=== PATIENT | male | born 1980 | race Caucasian/White ===

== ENCOUNTER 2023-02-06 05:33 | Emergency (ER) | payer SELFPAY ==
[~2023-02-06] VITALS: Ht 172.7 cm; Wt 80.0 kg
[2023-02-06] MEDS ORDERED: ONDANSETRON HCL 4 MG/2 ML VIAL IV ONE (07:45)
[2023-02-06] MEDS ORDERED: SODIUM CHLORIDE 0.9% 1,000 ML IV ONE (07:45)
[2023-02-06 09:53] VITALS: BP 124/76; PULSE 77; RESP 17; TEMP 99.8; O2SAT 97
[2023-02-06 10:19] LABS: Basophils # (auto) 0.1 10 ^3/uL (0-0.2); Basophils % (auto) 0.8 % (0.0-2.0); Eosinophils # (auto) 0 10 ^3/uL (0-0.8); Eosinophils % (auto) 0.1 % (0.0-7.0); Hematocrit 42.8 % (41.0-53.0); Hemoglobin 14.6 g/dL (13.5-17.5); Lymphocytes # (auto) 1.7 10 ^3/uL (0.4-5.4); Mean Corpuscular Hgb Conc. 34.2 g/dL (32.0-36.0); Mean Corpuscular Volume 90.8 fL (80.0-100.0); Monocytes # (auto) 0.8 10 ^3/uL (0-1.3); Monocytes % (auto) 7.9 % (0.0-12.0); Neutrophils % (auto) 75.2 % (37.0-80.0); Nucleated Red Blood Cells % 0.1 %; Red Blood Cells 4.71 10^6/uL (4.5-5.90); White Blood Cell 10.6 10^3/uL (4.4-10.8)
[2023-02-06 10:33] LABS: Alanine Aminotransferase 22 U/L (7-40); Alkaline Phosphatase 84 U/L (46-116); Anion Gap 10 (5-15); Aspartate Aminotransferase 54 U/L (13-40); BUN/Creatinine Ratio 16.5 (10.0-20.0); Blood Urea Nitrogen 15 mg/dL (9-23); Calcium 9.7 mg/dL (8.5-10.1); Carbon Dioxide 23 mmol/L (20-30); Chloride 102 mmol/L (98-107); Glucose 64 mg/dL (74-106); Potassium 3.8 mmol/L (3.5-5.1); Sodium 135 mmol/L (136-145)
[2023-02-06 10:34] LABS: Bilirubin, Total 1.6 mg/dL (0.2-1.0); Total Protein 7.2 g/dL (5.7-8.2)
[2023-02-06] MEDS ORDERED: ZOFR4T PO (10:34)
== END 2023-02-06 10:37 | disposition home or self-care (01) ==
LOC: EDBD 05:33 → ER 05:33
DX: F12.99 Cannabis use, unspecified with unspecified cannabis-induced disorder (principal); R10.84 Generalized abdominal pain; R11.2 Nausea with vomiting, unspecified; F17.210 Nicotine dependence, cigarettes, uncomplicated
CPT/HCPCS: 36415; 80053; 85025; 96361; 96374; 99283; J2405; J7030

== ENCOUNTER 2023-07-16 12:20 | Emergency (ER) | payer MEDICAID, OTHER ==
[~2023-07-16] VITALS: Ht 172.7 cm; Wt 69.0 kg
[~2023-07-16 12:20] MED LIST: ZOFR4T PO
[2023-07-16 13:11] LABS: Urine Bacteria None Seen /hpf (None Seen)
[2023-07-16 13:14] VITALS: BP 121/65; PULSE 70; RESP 18; TEMP 98.3; O2SAT 98
[2023-07-16 13:27] LABS: Urine Blood Negative /uL (Negative); Urine Clarity Turbid (Clear); Urine Color Yellow (Yellow); Urine Mucus FEW (None Seen); Urine Protein, UAD 1+ (Negative); Urine Specific Gravity 1.029 (1.001-1.035); Urine Urobilinogen Normal (Negative); Urine WBC 61 /hpf (0 - 3)
[2023-07-16] MEDS ORDERED: NITR-87 PO (14:03)
[2023-07-16] MEDS ORDERED: DOXY-286 PO (14:03)
[2023-07-16] MEDS: cefTRIAXone SOD 1,000 MG VL IM ONE (14:21)
[2023-07-16] MEDS: KETOROLAC TROMETH 30 MG/ML 1ML VIAL IM ONE (14:31)
[2023-07-17 08:07] LABS: RPR Non Reactive (Non Reactive)
[2023-07-17 15:06] LABS: Chlamydia Trachomatis, NAA Negative (Negative); Neisseria gonorrhoeae, NAA Negative (Negative)
== END 2023-07-16 14:38 | disposition home or self-care (01) ==
LOC: ER 12:20
DX: N39.0 Urinary tract infection, site not specified (principal); R30.0 Dysuria; F17.210 Nicotine dependence, cigarettes, uncomplicated; F12.10 Cannabis abuse, uncomplicated
CPT/HCPCS: 81001; 86592; 86703; 87491; 87591; 96372; 99284; J0696; J1885